=== PATIENT | female | born 1985 | race Caucasian/White ===

== ENCOUNTER 2016-11-21 16:12 | Emergency (ER) | payer OTHER ==
[~2016-11-21] VITALS: Ht 177.8 cm; Wt 142.2 kg
[2016-11-21] MEDS ORDERED: PREDNISONE20 MG PO (18:55)
[2016-11-21] MEDS ORDERED: VENTOLIN HFA18 GM IH (18:55)
[2016-11-21] MEDS ORDERED: MULTIVITAMIN1 EAC2 PO (19:20)
[2016-11-21 19:21] VITALS: BP 155/79
== END 2016-11-21 19:23 | disposition home or self-care (01) ==
LOC: RME 16:12 → EME 16:12 → EDBD 16:12 → RME 19:23
DX: J45.901 Unspecified asthma with (acute) exacerbation (principal); Y99.0 Civilian activity done for income or pay; X30.XXXA Exposure to excessive natural heat, initial encounter; Y92.89 Other specified places as the place of occurrence of the external cause; Z88.2 Allergy status to sulfonamides; Z88.0 Allergy status to penicillin; F43.10 Post-traumatic stress disorder, unspecified
CPT/HCPCS: 71020; 94640; 99281; 99284; J7512

== ENCOUNTER 2017-01-21 01:47 | Emergency (ER) | payer OTHER ==
[~2017-01-21 01:47] MED LIST: MULTIVITAMIN1 EAC2 PO; PREDNISONE20 MG PO; VENTOLIN HFA18 GM IH
[2017-01-21] MEDS ORDERED: IBUPROFEN600 MG PO (04:58)
[2017-01-21] MEDS ORDERED: ROBAXIN500 MG PO (04:58)
== END 2017-01-21 05:23 | disposition home or self-care (01) ==
LOC: EME 01:47
DX: M25.512 Pain in left shoulder (principal); R51 Headache; R10.30 Lower abdominal pain, unspecified; V49.40XA Driver injured in collision with unspecified motor vehicles in traffic accident, initial encounter; W22.10XA Striking against or struck by unspecified automobile airbag, initial encounter; Y92.410 Unspecified street and highway as the place of occurrence of the external cause
CPT/HCPCS: 73030; 99281; 99283; J1885